=== PATIENT | male | born 1965 | race Caucasian/White ===

== ENCOUNTER 2016-04-27 14:45 | Observation (INO) | payer OTHER ==
[~2016-04-27] VITALS: Ht 193 cm; Wt 101.7 kg
[2016-04-27] MEDS ORDERED: ONDANSETRON PF 4 MG/2 ML VIAL. IV ONE (15:45)
[2016-04-27] MEDS ORDERED: IV NORMAL SALINE 500ML BAG 500 ML IV ONE (15:45)
[2016-04-27] MEDS: HYDROMORPHONE 2 MG/ML VIAL. IV PRN ×3 (16:02→22:23)
--- NOTE | 2016-04-27 16:05 | RAD ---
Lumbar spine, 3 views, 04/27/2016: History: Low back pain after lifting injury The lumbar vertebral heights are well-maintained. There is mild disc space narrowing at L1-2 and L5-S1. There are moderate scattered marginal spurs. There is a grade 1 spondylolisthesis at L5-S1. There are underlying degenerative changes involving the facet joints. No acute fracture is identified. IMPRESSION: 1. Mild to moderate multilevel degenerative change. 2. Grade 1 spondylolisthesis at L5-S1.
[2016-04-27] MEDS ORDERED: CYCLOBENZAPRINE 10 MG TABLET. PO ONE (16:15)
[2016-04-27] MEDS ORDERED: MORPHINE SULFATE 2 MG/ML DISP.SYRIN. IV PRN (18:15)
[2016-04-27] MEDS ORDERED: ONDANSETRON PF 4 MG/2 ML VIAL. IV PRN (18:15)
[2016-04-27] MEDS ORDERED: LORAZEPAM 1 MG TABLET. PO ONE (18:15)
--- NOTE | 2016-04-27 18:25 | PHYS DOC ---
Past Medical History Past Medical History: Hypertension Past Surgical History: Other Additional Past Surgical Histo: HERNIA Alcohol Use: Rarely Drug Use: None Adult General Chief Complaint Chief Complaint: BACK PAIN OR INJURY HPI HPI 50-year-old male presenting to the emergency department today with lower back pain. His been present for about 24 hours. He describes it as a sharp stabbing pain that radiates down his legs bilaterally. The pain is alleviated by rest and exacerbated by walking or standing. It is progressively become worse over the past 24 hours. He presents our emergency department today by EMS. Review of systems is negative for fecal or urinary incontinence. He denies perineal paresthesias he denies weakness numbness or tingling of his lower extremities. All other review of systems is negative unless otherwise noted in history of present illness. Review of Systems Review of Systems SEE ABOVE. Current Medications Current Medications Current Medications Medications (Trade) Dose Ordered Sig/Aidan Start Time Stop Time Status Last Admin Dose Admin Cyclobenzaprine HCl (Flexeril) 10 mg 1X ONCE 04/27/16 16:15 04/27/16 16:16 DC 04/27/16 16:04 10 MG Hydromorphone HCl (Dilaudid) 1 mg PRN Q1HR PRN 04/27/16 15:45 04/27/16 17:37 1 MG Lorazepam (Ativan) 1 mg 1X ONCE 04/27/16 18:15 04/27/16 18:16 Morphine Sulfate 2 mg PRN Q2HR PRN 04/27/16 18:15 04/28/16 18:14 Ondansetron HCl (Zofran) 4 mg PRN Q8HRS PRN 04/27/16 18:15 04/28/16 18:14 Ondansetron HCl 4 mg 4 mg 1X ONCE 04/27/16 15:45 04/27/16 15:46 DC 04/27/16 16:00 4 MG Sodium Chloride (Iv Sodium Chloride 0.9% 500ml Bag) 500 ml @ 500 mls/hr 1X ONCE 04/27/16 15:45 04/27/16 16:44 DC 04/27/16 16:01 500 MLS/HR Allergies Allergies Allergies Coded Allergies Type Severity Reaction Last Updated Verified No Known Drug Allergies 04/27/16 No Physical Exam Physical Exam Constitutional: Well developed, well nourished, no acute distress, non-toxic appearance. HENT: Normocephalic, atraumatic, bilateral external ears normal, oropharynx moist, no oral exudates, nose normal. [] Eyes: PERRLA, EOMI, conjunctiva normal, no discharge. Neck: Normal range of motion, no tenderness, supple, no stridor. [] Cardiovascular:Heart rate regular rhythm, no murmur [] Lungs & Thorax: Bilateral breath sounds clear to auscultation Abdomen: Bowel sounds normal, soft, no tenderness, no masses, no pulsatile masses. [] Skin: Warm, dry, no erythema, no rash. Back: The patient has mild tenderness along the paraspinal musculature. No midline tenderness present. No rashes erythema or fluctuance present. Extremities: No tenderness, no cyanosis, no clubbing, ROM intact, no edema. The patient has 5 out of 5 strength in his lower extremities both in his ability to dorsiflex and plantar flex. He has 2+ deep tendon reflexes in his knees bilaterally. Normal sensation of the foot. Palpable pulse in the feet bilaterally. Neurologic: Alert and oriented X 3, normal motor function, normal sensory function, no focal deficits noted. [] Psychologic: Affect normal, judgement normal, mood normal. [] Current Patient Data Vital Signs Vital Signs Date Time Temp Pulse Resp B/P Pulse Ox O2 Delivery O2 Flow Rate FiO2 04/27/16 17:00 85 18 157/88 100 Room Air 04/27/16 14:50 99.2 99.2 EKG EKG [] Radiology/Procedures Radiology/Procedures [] Course & Med Decision Making Course & Med Decision Making Pertinent Labs and Imaging studies reviewed. (See chart for details) [] 50-year-old male presenting to the emergency department today with lower back pain. Vital signs afebrile with mild tachycardia likely secondary to pain. Otherwise hypertension present. Clinical presentation not suggestive of abscess , cauda equina syndrome, or fracture. X-rays obtained which showed mild anterior listhesis of L5 on S1. His pain was told in the emergency department with multiple doses of intravenous opioid therapy. Unfortunately on reexamination his pain had not improved enough to be discharged. He was subsequently admitted to our hospital for further pain management. Consultation was placed for physiatry and spinal surgery. Dragon Disclaimer Dragon Disclaimer This electronic medical record was generated, in whole or in part, using a voice recognition dictation system. Departure Departure Impression: Primary Impression: Intractable low back pain Disposition: ADMITTED INPATIENT Admitting Physician: Yara Costello Condition: STABLE Referrals: NO PCP (PCP) PRETTY PILLAI MD Apr 27, 2016 18:25
--- NOTE | 2016-04-27 20:11 | ACF ---
Admission Forms Criteria BACK PAIN Clinical Indications for Admission to Inpatient Care (Place 'X' for any and all applicable criteria): Admission is indicated for ANY ONE of the following (1)(2)(3)(4)(5)(6): [X]I. Inpatient admission required rather than observation care (Also use Back Pain: Observation Care as appropriate) because of ANY ONE of the following [X]a) Severe pain requiring acute inpatient management [ ]b) Immediate inpatient surgery [ ]c) Other condition, treatment or monitoring requiring inpatient admission [ ]II. Spine fracture with significant damage or threat of damage to vertebral column or spinal cord [ ]III. Progressive or severe neurologic deficit [ ]IV. Suspected spinal infection (e.g., epidural abscess, vertebral osteomyelitis)(10) [ ]V. Suspected cause requires inpatient treatment (eg, aortic dissection) [ ]. Cauda equina syndrome as indicated by ANY ONE of the following (9): [ ]a) Bowel dysfunction [ ]b) Bladder dysfunction [ ]c) Saddle anesthesia [ ]d) Neurologic abnormality suggesting cauda equina impingement Extended stay beyond goal length of stay may be needed for (3)(25): [ ]a) Spinal cord compression from stenosis, disk, or tumor (8)(9) [ ]b) Traumatic or pathologic vertebral fracture (33) [ ]c) Vertebral infection(10) [ ]d) Severe pain that is difficult to control [ ]e) Older patients(65 years or older) The original [facility] content created by [employer] has been revised. The portions of the content which have been revised are identified through the use of italic text or in bold, and [facility] has neither reviewed nor approved the modified material. All other unmodified content is copyright [facility]. Please see references footnoted in the original [facility] edition 2016 Admission Criteria Met?: Yes VERO BURTON Apr 27, 2016 20:11
[2016-04-27] MEDS ORDERED: LISI1TAB7 PO (20:40)
[2016-04-27] MEDS ORDERED: CYCL10TA2 PO (20:40)
[2016-04-27] MEDS: IV NORMAL SALINE 1000ML BAG 1,000 ML IV SCH (22:23)
[2016-04-27 23:00] VITALS: BP 136/93
[2016-04-28 03:00] VITALS: BP 142/85
[2016-04-28] MEDS: HYDROMORPHONE 2 MG/ML VIAL. IV PRN (04:06)
[2016-04-28 06:36] LABS: BASO % 0 % (0-3); EOS % 0 % (0-3); HEMATOCRIT 47.3 % (39.0-53.0); HEMOGLOBIN 15.9 g/dL (13.0-17.5); LYMPH # 1.9 x10^3/uL (1.0-4.8); LYMPH % 15 % (24-48); MEAN CORPUSCULAR HEMOGLOBIN 30 pg (25-35); MEAN CORPUSCULAR HGB CONC 34 g/dL (31-37); MEAN CORPUSCULAR VOLUME 91 fL (79-100); MONO % 8 % (0-9); NEUT % 76 % (31-73); PLATELET COUNT 321 x10^3/uL (140-400); RED BLOOD COUNT 5.22 x10^6/uL (4.30-5.70); RED CELL DISTRIBUTION WIDTH 14.4 % (11.5-14.5); WHITE BLOOD COUNT 12.3 x10^3/uL (4.0-11.0)
[2016-04-28 06:49] LABS: CALCIUM 8.9 mg/dL (8.5-10.1); CREATININE 1.1 mg/dL (0.7-1.3); GFR 70.6; POTASSIUM 4.2 mmol/L (3.5-5.1)
[2016-04-28 07:00] VITALS: BP 133/88
[2016-04-28] MEDS: IV NORMAL SALINE 1000ML BAG 1,000 ML IV SCH ×2 (08:10→18:10)
[2016-04-28] MEDS ORDERED: ONDANSETRON PF 4 MG/2 ML VIAL. IV PRN ×2 (09:36→18:00)
[2016-04-28] MEDS ORDERED: OXYCODONE/APAP 10/325 TABLET. PO PRN (09:45)
[2016-04-28] MEDS ORDERED: CYCLOBENZAPRINE 10 MG TABLET. PO PRN ×2 (09:45)
[2016-04-28] MEDS ORDERED: BUPIVACAINE MPF 0.25% 10 ML VIAL. IJ ONE (10:15)
[2016-04-28] MEDS ORDERED: methylPREDNISolone ACETATE 40 MG/ML VIAL. IM ONE (10:15)
[2016-04-28] MEDS: PANTOPRAZOLE 40 MG TABLET. PO SCH (10:34)
[2016-04-28] MEDS: HYDROCHLOROTHIAZIDE 25 MG TABLET PO SCH (10:34)
[2016-04-28] MEDS: methylPREDNISolone 4 MG TABLET. PO SCH ×4 (10:34→20:02)
[2016-04-28] MEDS: LISINOPRIL 20 MG TABLET PO SCH (10:35)
[2016-04-28] MEDS: OXYCODONE/APAP 5/325 TABLET. PO PRN (10:35)
[2016-04-28 11:00] VITALS: BP 150/88
[2016-04-28] MEDS: CYCLOBENZAPRINE 10 MG TABLET. PO SCH ×2 (13:20→20:03)
--- NOTE | 2016-04-28 13:55 | RAD ---
MR LUMBAR SPINE HISTORY:NO PRIORS..PT C/O LBP WITH TINGLING AND NUMBNESS IN FEETReason: subacute lumbar sprain with lumbar radiculitis. / Spl. Instructions: / History: Technique: Sagittal T2, sagittal STIR, and sagittal T1-weighted images were obtained. Additional axial T1 and T2 weighted imaging was also performed. FINDINGS: There is grade 1 spondylolisthesis of L5 on S1 with bilateral L5 pars defects. There is no compression fracture. Overall bone marrow signal is within normal limits. The conus terminates normally at the level of T12-L1. Visualized intra-abdominal contents demonstrates no acute abnormality. At L5-S1 there is grade 1 spondylolisthesis with bilateral L5 pars defects. There is a broad-based disc protrusion that extends into the bilateral foramina resulting and moderate to severe right and moderate left foraminal stenosis. Correlate for L5 radiculopathy symptoms. At L4-L5 there is moderate disc height loss and a small disc bulge but no spinal stenosis. At L3-L4 there is no spinal stenosis. At L2-L3 there is no spinal stenosis. At L1-L2 there is no spinal stenosis. Impression: - There is grade 1 spondylolisthesis of L5-S1 with bilateral L5 pars defects. This results in moderate to severe right and moderate left foraminal stenosis. Correlate for L5 radiculopathy. Electronically signed by: Junior Wong (Apr 28, 2016 13:54:19)
--- NOTE | 2016-04-28 14:11 | PDOC1 ---
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 No urinary or fecal incontinence but pain was severe he had cold clammy hands, and tingling bilateral feet. His feet was ice cold per relay. Imaging done at ER shows some muscle spasms, maybe cord involvement? enhancement? ER needing IV dilaudid with no resolve with morphine, HE claims he does not like usually narcotics Imaging: Impression: - There is grade 1 spondylolisthesis of L5-S1 with bilateral L5 pars defects. This results in moderate to severe right and moderate left foraminal stenosis. Correlate for L5 radiculopathy. Past Medical History Cardiovascular: No pertinent hx Pulmonary: No pertinent hx GI: No pertinent hx Heme/Onc: No pertinent hx Hepatobiliary: No pertinent hx Psych: No pertinent hx Rheumatologic: No pertinent hx Infectious disease: No pertinent hx ENT: No pertinent hx Renal/: No pertinent hx Endocrine: No pertinent hx Past Surgical History Past Surgical History: No pertinent history Family History Family History: No Significant Social History Smoke: No ALCOHOL: none Drugs: None Current Problem List Problem List Problems Medical Problems: (1) Intractable low back pain Status: Acute Problems: Current Medications Current Medications Current Medications Hydromorphone HCl (Dilaudid) 1 mg PRN Q1HR PRN IV SEVERE PAIN Last administered on 04/27/16 17:37; Start 04/27/16 at 15:45; Stop 04/28/16 at 11:00 ; Status DC Ondansetron HCl 4 mg 4 mg 1X ONCE IV Last administered on 04/27/16 16:00; Start 04/27/16 at 15:45; Stop 04/27/16 at 15:46; Status DC Sodium Chloride (Iv Sodium Chloride 0.9% 500ml Bag) 500 ml @ 500 mls/hr 1X ONCE IV Last administered on 04/27/16 16:01; Start 04/27/16 at 15:45; Stop at 16:44; Status DC Cyclobenzaprine HCl (Flexeril) 10 mg 1X ONCE PO Last administered on 16:04; Start 04/27/16 at 16:15; Stop 04/27/16 at 16:16; Status DC Lorazepam (Ativan) 1 mg 1X ONCE PO ; Start 04/27/16 at 18:15; Stop 04/27/16 at 18:16; Status DC Ondansetron HCl (Zofran) 4 mg PRN Q8HRS PRN IV NAUSEA/VOMITING Last administered on 04/27/16 20:37; Start 04/27/16 at 18:15; Stop 04/28/16 at 09:38 ; Status DC Morphine Sulfate 2 mg PRN Q2HR PRN IV PAIN Last administered on 04/27/16 20:31 ; Start 04/27/16 at 18:15; Stop 04/28/16 at 18:14 Hydromorphone HCl 1 mg 1 mg PRN Q4HRS PRN IV PAIN Last administered on 04:06; Start 04/27/16 at 22:30 Sodium Chloride (Iv Sodium Chloride 0.9% 1000ml Bag) 1,000 ml @ 100 mls/hr Q10H IV Last administered on 04/28/16 08:10; Start 04/27/16 at 22:30 Ondansetron HCl (Zofran) 4 mg PRN Q6HRS PRN IV NAUSEA/VOMITING; Start 04/28/16 at 09:36 Oxycodone/ Acetaminophen (Percocet 10/325) 1 tab PRN Q4HRS PRN PO pain; Start 04/28/16 at 09:45 Oxycodone/ Acetaminophen (Percocet 5/325) 1 tab PRN Q4HRS PRN PO MILD-MOD PAIN Last administered on 04/28/16 10:35; Start 04/28/16 at 09:45 Acetaminophen (Tylenol) 500 mg PRN Q6HRS PRN PO MILD PAIN / TEMP; Start at 09:45 Cyclobenzaprine HCl (Flexeril) 10 mg PRN Q6HRS PRN PO MUSCLE SPASMS; Start at 09:45; Stop 04/28/16 at 09:45; Status DC Cyclobenzaprine HCl (Flexeril) 10 mg PRN TID PRN PO PAIN; Start 04/28/16 at 09: 45; Stop 04/28/16 at 14:00; Status DC Lisinopril (Prinivil) 20 mg DAILY PO Last administered on 04/28/16 10:35; Start 04/28/16 at 10:00 Hydrochlorothiazide (Hydrodiuril) 25 mg DAILY PO Last administered on 10:34; Start 04/28/16 at 10:00 Cyclobenzaprine HCl (Flexeril) 10 mg Q8HRS PO Last administered on 04/28/16 13 :20; Start 04/28/16 at 14:00 Methylprednisolone (Medrol) 8 mg BID PO Last administered on 04/28/16 10:34; Start 04/28/16 at 09:00; Stop 04/28/16 at 21:01 Methylprednisolone (Medrol) 4 mg BIDPCLD PO Last administered on 04/28/16 13: 19; Start 04/28/16 at 12:30; Stop 04/28/16 at 17:31 Methylprednisolone (Medrol) 4 mg TIDPC PO ; Start 04/29/16 at 08:30; Stop at 17:31 Methylprednisolone (Medrol) 8 mg QHS PO ; Start 04/29/16 at 21:00; Stop at 21:01 Methylprednisolone (Medrol) 4 mg QIDAFTMEAL PO ; Start 04/30/16 at 09:00; Stop 04/30/16 at 21:01 Methylprednisolone (Medrol) 4 mg TID PO ; Start 05/01/16 at 09:00; Stop at 21:01 Methylprednisolone (Medrol) 4 mg BID PO ; Start 05/02/16 at 09:00; Stop at 21:01 Methylprednisolone (Medrol) 4 mg DAILY PO ; Start 05/03/16 at 09:00; Stop at 09:01 Pantoprazole Sodium (Protonix) 40 mg DAILYAC PO Last administered on 04/28/16 10:34; Start 04/28/16 at 10:30 Methylprednisolone Acetate (Depo-Medrol 40mg Vial) 40 mg 1X ONCE IM ; Start at 10:15; Stop 04/28/16 at 10:21; Status DC Bupivacaine HCl (Sensorcaine-Mpf 0.25%) 10 ml 1X ONCE IJ ; Start 04/28/16 at 10 :15; Stop 04/28/16 at 10:21; Status DC Active Scripts Active Reported Cyclobenzaprine Hcl 10 Mg Tablet 1 Tab PO PRN TID PRN Lisinopril-Hctz 20-25 Mg Tab (Lisinopril/Hydrochlorothiazide) 1 Each Tablet 1 Tab PO DAILY Allergies Allergies: Coded Allergies: No Known Drug Allergies (Unverified , 04/27/16) ROS Review of System back pain, as per hPI, all else is neg Physical Exam General: Alert, Oriented X3, Cooperative, No acute distress, Other (sitting steady/remianing stillmin bed - afraid to move) HEENT: Atraumatic, PERRLA Lungs: Clear to auscultation Heart: S1S2, RRR, no thrills, no rubs Cardiovascular: S1 Breasts: Normal Abdomen: Normal bowel sounds, Soft, No tenderness, No hepatosplenomegaly, No masses Male Genitals Exam: normal genitalia, normal prostate PELVIC: Nml ext genitalia Extremities: No clubbing, No cyanosis, No edema, Normal pulses, No tenderness/ swelling Skin: No rashes, No breakdown, No significant lesion Neuro: Normal gait, Normal speech, Strength at 5/5 X4 ext, Normal tone, Sensation intact, Cranial nerves 3-12 NL, Reflexes 2+ Psych/Mental Status: Mental status NL, Mood NL Vitals Vitals Vital Signs Date Time Temp Pulse Resp B/P Pulse Ox O2 Delivery O2 Flow Rate FiO2 04/28/16 11:35 16 98 Room Air 04/28/16 11:00 98.0 82 150/88 98.0 Labs Labs Laboratory Tests Test 04/28/16 06:10 White Blood Count 12.3x10^3/uL (4.0-11.0) Red Blood Count 5.22x10^6/uL (4.30-5.70) Hemoglobin 15.9g/dL (13.0-17.5) Hematocrit 47.3% (39.0-53.0) Mean Corpuscular Volume 91fL (79-100) Mean Corpuscular Hemoglobin 30pg (25-35) Mean Corpuscular Hemoglobin Concent 34g/dL (31-37) Red Cell Distribution Width 14.4% (11.5-14.5) Platelet Count 321x10^3/uL (140-400) Neutrophils (%) (Auto) 76% (31-73) Lymphocytes (%) (Auto) 15% (24-48) Monocytes (%) (Auto) 8% (0-9) Eosinophils (%) (Auto) 0% (0-3) Basophils (%) (Auto) 0% (0-3) Neutrophils # (Auto) 9.3x10^3uL (1.8-7.7) Lymphocytes # (Auto) 1.9x10^3/uL (1.0-4.8) Monocytes # (Auto) 1.0x10^3/uL (0.0-1.1) Eosinophils # (Auto) 0.0x10^3/uL (0.0-0.7) Basophils # (Auto) 0.0x10^3/uL (0.0-0.2) Sodium Level 141mmol/L (136-145) Potassium Level 4.2mmol/L (3.5-5.1) Chloride Level 105mmol/L (98-107) Carbon Dioxide Level 26mmol/L (21-32) Anion Gap 10 (6-14) Blood Urea Nitrogen 16mg/dL (8-26) Creatinine 1.1mg/dL (0.7-1.3) Estimated GFR (Cockcroft-Gault) 70.6 Glucose Level 122mg/dL (70-99) Calcium Level 8.9mg/dL (8.5-10.1) Laboratory Tests Test 04/28/16 06:10 White Blood Count 12.3x10^3/uL (4.0-11.0) Red Blood Count 5.22x10^6/uL (4.30-5.70) Hemoglobin 15.9g/dL (13.0-17.5) Hematocrit 47.3% (39.0-53.0) Mean Corpuscular Volume 91fL (79-100) Mean Corpuscular Hemoglobin 30pg (25-35) Mean Corpuscular Hemoglobin Concent 34g/dL (31-37) Red Cell Distribution Width 14.4% (11.5-14.5) Platelet Count 321x10^3/uL (140-400) Neutrophils (%) (Auto) 76% (31-73) Lymphocytes (%) (Auto) 15% (24-48) Monocytes (%) (Auto) 8% (0-9) Eosinophils (%) (Auto) 0% (0-3) Basophils (%) (Auto) 0% (0-3) Neutrophils # (Auto) 9.3x10^3uL (1.8-7.7) Lymphocytes # (Auto) 1.9x10^3/uL (1.0-4.8) Monocytes # (Auto) 1.0x10^3/uL (0.0-1.1) Eosinophils # (Auto) 0.0x10^3/uL (0.0-0.7) Basophils # (Auto) 0.0x10^3/uL (0.0-0.2) Sodium Level 141mmol/L (136-145) Potassium Level 4.2mmol/L (3.5-5.1) Chloride Level 105mmol/L (98-107) Carbon Dioxide Level 26mmol/L (21-32) Anion Gap 10 (6-14) Blood Urea Nitrogen 16mg/dL (8-26) Creatinine 1.1mg/dL (0.7-1.3) Estimated GFR (Cockcroft-Gault) 70.6 Glucose Level 122mg/dL (70-99) Calcium Level 8.9mg/dL (8.5-10.1) VTE Prophylaxis Ordered VTE Prophylaxis Devices: Yes VTE Pharmacological Prophylaxi: Yes Assessment/Plan Assessment/Plan 1. Acute back pain on top of chronic, recent lifting heavy objects 2.grade 1 spondylolisthesis of L5-S1 with bilateral L5 pars defects. 3. moderate to severe right and moderate left foraminal stenosis.possible L5 radiculopathy. PLAn: Consult neurosx and physiatry PT./OT once cleared by the above services IV dialudid PO pain meds BOwel regimen while on narcs COnt iVF (less PO bec of pain) Dw RN and at bedside and pt CARRILLO MARX MD Apr 28, 2016 14:10
[2016-04-28] MEDS ORDERED: POLYETHYLENE GLYCOL 3350 17 GM PACKET. PO PRN (14:15)
[2016-04-28] MEDS: DOCUSATE SODIUM 100 MG CAPSULE PO SCH (14:30)
[2016-04-28 14:58] VITALS: BP 152/97
[2016-04-28 19:00] VITALS: BP 125/93
[2016-04-28 23:00] VITALS: BP 128/88
--- NOTE | 2016-04-29 01:53 | CONS ---
DATE OF CONSULTATION: 04/28/2016 ATTENDING PHYSICIAN: Dr. Costello. 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 He is moving some heavy objects in his yard. He started having the lower back pain with radiation to both lower extremities and yesterday he started having numbness and sweating in his hands. He was admitted through the Emergency Room. He was brought by emergency medical service personal. He denies any trouble with his bowel or bladder control, last time he had back pain is about 20 years ago. The patient denies any numbness or weakness in the extremities. The patient had x-rays of his lumbar spine done in the Emergency Room last evening, which revealed [id number] mitral level degenerative changes with disk space narrowing at L1-L2, L5-S1, moderate scattered marginal spurs, grade 1 spondylolisthesis of L5 on S1 with underlying degenerative changes in ____ facet joints. The patient admits pain is somewhat better with medication, mainly Dilaudid. The patient is still having some back muscle spasm with any movement. The patient has been independent with bed mobility and self-care skills prior to the present hospitalization. PHYSICAL EXAMINATION: Today revealed a middle-aged male patient is alert, oriented to time, place, person and circumstance and he is in no acute distress, still having some pain with any movement of his back. The patient had painful limited movements of his lumbar spine and straight leg raising test on the left side, causes some back pain is negative on the right side. He had 5/5 grade muscle strength in his upper and lower extremities. Deep tendon reflexes are 2+ and symmetrical and he had equal perception of touch and pinprick sensation bilaterally, localized tenderness to palpation over sacroiliac joint area. He had a crepitus on range of motion of both knee joints with mild right knee joint effusion. His skin is intact at this time. I did not see any obvious lumbar paraspinal muscles spasm at present time. He is independent with rolling from side to side. I have not tested his transfers or ambulation skills at present time. ASSESSMENT: A middle-aged male with subacute lumbar sprain with lumbar radiculitis with radiological evidence of degenerative disk disease and degenerative joint disease of lumbar vertebrae. No clinical evidence of ongoing lumbar radiculopathy to rule out any acute disk herniation. RECOMMENDATIONS: To obtain MRI scan of his lumbar vertebrae. To start him on Medrol Dosepak and to get him up with lumbar corset. Hopefully, home when medically stable in the next day or so. To consider sacroiliac joint injection, if his back pain persists. Dr. Costello, I appreciate asking me to participate in care of this interesting patient. I will be glad to follow him with you as needed for his rehabilitation. NIXON RUVALCABA MD DR: KAI/juliet JOB#: [id number] / [id number]
[2016-04-29 03:00] VITALS: BP 125/78
[2016-04-29] MEDS: IV NORMAL SALINE 1000ML BAG 1,000 ML IV SCH ×2 (04:30→13:51)
[2016-04-29] MEDS: CYCLOBENZAPRINE 10 MG TABLET. PO SCH ×3 (06:31→20:12)
[2016-04-29] MEDS: ACETAMINOPHEN 500 MG TABLET PO PRN (06:31)
[2016-04-29 07:24] VITALS: BP 116/78
[2016-04-29] MEDS: methylPREDNISolone 4 MG TABLET. PO SCH ×3 (08:30→17:30)
[2016-04-29] MEDS: LISINOPRIL 20 MG TABLET PO SCH (09:14)
[2016-04-29] MEDS: PANTOPRAZOLE 40 MG TABLET. PO SCH (09:14)
[2016-04-29] MEDS: HYDROCHLOROTHIAZIDE 25 MG TABLET PO SCH (09:14)
[2016-04-29] MEDS: DOCUSATE SODIUM 100 MG CAPSULE PO SCH (09:14)
--- NOTE | 2016-04-29 10:26 | PDOC ---
PROGRESS NOTES Subjective Subjective He continues with low back pain and no BM for 3 days.He had GI upset probably from prednisone as he did not eat much yesterday. Objective Objective Vital Signs Date Time Temp Pulse Resp B/P Pulse Ox O2 Delivery O2 Flow Rate FiO2 04/29/16 09:14 71 116/78 04/29/16 07:24 98.1 20 95 Room Air 98.1 Intake and Output 04/29/16 07:00 Intake Total 600 ml Output Total 1350 ml Balance -750 ml Intake Oral 600 ml Output Urine Total 1350 ml Physical Exam Physical Exam He is alert,and he got up with roller walker and felt dizzy while up but he did walk with roller walker for short distances.Mri scan revealed DDD and DJD with some degree of neural foraminal compromise at L5-S1 level and spondylolisthesis of L5 on S1. Assessment Assessment Problems Medical Problems: (1) Intractable low back pain Status: Acute Plan Plan of Care To get him up as tolerated.I thought of injecting his sacroiliac joints but he did not have any localized tenderness to palpation over sacroiliac joints this AM.To ask to see him for consideration of lumbar epidural steroid injection. Home when medically stable. Comment Review of Relevant I have reviewed the following items alan (where applicable) has been applied. Labs Laboratory Tests Test 04/28/16 06:10 White Blood Count 12.3x10^3/uL (4.0-11.0) Red Blood Count 5.22x10^6/uL (4.30-5.70) Hemoglobin 15.9g/dL (13.0-17.5) Hematocrit 47.3% (39.0-53.0) Mean Corpuscular Volume 91fL (79-100) Mean Corpuscular Hemoglobin 30pg (25-35) Mean Corpuscular Hemoglobin Concent 34g/dL (31-37) Red Cell Distribution Width 14.4% (11.5-14.5) Platelet Count 321x10^3/uL (140-400) Neutrophils (%) (Auto) 76% (31-73) Lymphocytes (%) (Auto) 15% (24-48) Monocytes (%) (Auto) 8% (0-9) Eosinophils (%) (Auto) 0% (0-3) Basophils (%) (Auto) 0% (0-3) Neutrophils # (Auto) 9.3x10^3uL (1.8-7.7) Lymphocytes # (Auto) 1.9x10^3/uL (1.0-4.8) Monocytes # (Auto) 1.0x10^3/uL (0.0-1.1) Eosinophils # (Auto) 0.0x10^3/uL (0.0-0.7) Basophils # (Auto) 0.0x10^3/uL (0.0-0.2) Sodium Level 141mmol/L (136-145) Potassium Level 4.2mmol/L (3.5-5.1) Chloride Level 105mmol/L (98-107) Carbon Dioxide Level 26mmol/L (21-32) Anion Gap 10 (6-14) Blood Urea Nitrogen 16mg/dL (8-26) Creatinine 1.1mg/dL (0.7-1.3) Estimated GFR (Cockcroft-Gault) 70.6 Glucose Level 122mg/dL (70-99) Calcium Level 8.9mg/dL (8.5-10.1) Medications Current Medications Hydromorphone HCl (Dilaudid) 1 mg PRN Q1HR PRN IV SEVERE PAIN Last administered on 04/27/16 17:37; Start 04/27/16 at 15:45; Stop 04/28/16 at 11:00 ; Status DC Ondansetron HCl 4 mg 4 mg 1X ONCE IV Last administered on 04/27/16 16:00; Start 04/27/16 at 15:45; Stop 04/27/16 at 15:46; Status DC Sodium Chloride (Iv Sodium Chloride 0.9% 500ml Bag) 500 ml @ 500 mls/hr 1X ONCE IV Last administered on 04/27/16 16:01; Start 04/27/16 at 15:45; Stop at 16:44; Status DC Cyclobenzaprine HCl (Flexeril) 10 mg 1X ONCE PO Last administered on 16:04; Start 04/27/16 at 16:15; Stop 04/27/16 at 16:16; Status DC Lorazepam (Ativan) 1 mg 1X ONCE PO ; Start 04/27/16 at 18:15; Stop 04/27/16 at 18:16; Status DC Ondansetron HCl (Zofran) 4 mg PRN Q8HRS PRN IV NAUSEA/VOMITING Last administered on 04/27/16 20:37; Start 04/27/16 at 18:15; Stop 04/28/16 at 09:38 ; Status DC Morphine Sulfate 2 mg PRN Q2HR PRN IV PAIN Last administered on 04/27/16 20:31 ; Start 04/27/16 at 18:15; Stop 04/28/16 at 14:04; Status DC Hydromorphone HCl 1 mg 1 mg PRN Q4HRS PRN IV PAIN Last administered on 04:06; Start 04/27/16 at 22:30 Sodium Chloride (Iv Sodium Chloride 0.9% 1000ml Bag) 1,000 ml @ 100 mls/hr Q10H IV Last administered on 04/28/16 18:10; Start 04/27/16 at 22:30 Ondansetron HCl (Zofran) 4 mg PRN Q6HRS PRN IV NAUSEA/VOMITING; Start 04/28/16 at 09:36 Oxycodone/ Acetaminophen (Percocet 10/325) 1 tab PRN Q4HRS PRN PO pain; Start 04/28/16 at 09:45 Oxycodone/ Acetaminophen (Percocet 5/325) 1 tab PRN Q4HRS PRN PO MILD-MOD PAIN Last administered on 04/28/16 10:35; Start 04/28/16 at 09:45 Acetaminophen (Tylenol) 500 mg PRN Q6HRS PRN PO MILD PAIN / TEMP Last administered on 04/29/16 06:31; Start 04/28/16 at 09:45 Cyclobenzaprine HCl (Flexeril) 10 mg PRN Q6HRS PRN PO MUSCLE SPASMS; Start at 09:45; Stop 04/28/16 at 09:45; Status DC Cyclobenzaprine HCl (Flexeril) 10 mg PRN TID PRN PO PAIN; Start 04/28/16 at 09: 45; Stop 04/28/16 at 14:00; Status DC Lisinopril (Prinivil) 20 mg DAILY PO Last administered on 04/29/16 09:14; Start 04/28/16 at 10:00 Hydrochlorothiazide (Hydrodiuril) 25 mg DAILY PO Last administered on 09:14; Start 04/28/16 at 10:00 Cyclobenzaprine HCl (Flexeril) 10 mg Q8HRS PO Last administered on 04/29/16 06 :31; Start 04/28/16 at 14:00 Methylprednisolone (Medrol) 8 mg BID PO Last administered on 04/28/16 10:34; Start 04/28/16 at 09:00; Stop 04/28/16 at 21:01; Status DC Methylprednisolone (Medrol) 4 mg BIDPCLD PO Last administered on 04/28/16 18: 03; Start 04/28/16 at 12:30; Stop 04/28/16 at 17:31; Status DC Methylprednisolone (Medrol) 4 mg TIDPC PO ; Start 04/29/16 at 08:30; Stop at 17:31 Methylprednisolone (Medrol) 8 mg QHS PO ; Start 04/29/16 at 21:00; Stop at 21:01 Methylprednisolone (Medrol) 4 mg QIDAFTMEAL PO ; Start 04/30/16 at 09:00; Stop 04/30/16 at 21:01 Methylprednisolone (Medrol) 4 mg TID PO ; Start 05/01/16 at 09:00; Stop at 21:01 Methylprednisolone (Medrol) 4 mg BID PO ; Start 05/02/16 at 09:00; Stop at 21:01 Methylprednisolone (Medrol) 4 mg DAILY PO ; Start 05/03/16 at 09:00; Stop at 09:01 Pantoprazole Sodium (Protonix) 40 mg DAILYAC PO Last administered on 04/29/16 09:14; Start 04/28/16 at 10:30 Methylprednisolone Acetate (Depo-Medrol 40mg Vial) 40 mg 1X ONCE IM ; Start at 10:15; Stop 04/28/16 at 10:21; Status DC Bupivacaine HCl (Sensorcaine-Mpf 0.25%) 10 ml 1X ONCE IJ ; Start 04/28/16 at 10 :15; Stop 04/28/16 at 10:21; Status DC Docusate Sodium (Colace) 100 mg DAILY PO Last administered on 04/29/16 09:14; Start 04/28/16 at 14:30 Polyethylene Glycol (miraLAX PACKET) 17 gm PRN DAILY PRN PO CONSTIPATION; Start 04/28/16 at 14:15 Ondansetron HCl (Zofran) 4 mg PRN Q8HRS PRN IV NAUSEA/VOMITING Last administered on 04/28/16 18:02; Start 04/28/16 at 18:00 Active Scripts Active Reported Cyclobenzaprine Hcl 10 Mg Tablet 1 Tab PO PRN TID PRN Lisinopril-Hctz 20-25 Mg Tab (Lisinopril/Hydrochlorothiazide) 1 Each Tablet 1 Tab PO DAILY Vitals/I & O Vital Sign - Last 24 Hours 04/28/16 04/28/16 04/28/16 04/28/16 10:35 10:35 11:00 11:35 Temp 98.0 98.0 Pulse 80 82 Resp 18 18 16 B/P 133/88 150/88 Pulse Ox 97 98 98 O2 Delivery Room Air Room Air 04/28/16 04/28/16 04/28/16 04/28/16 14:58 19:00 20:05 23:00 Temp 98.0 97.9 98.8 98.0 97.9 98.8 Pulse 87 80 78 Resp 18 20 B/P 152/97 125/93 128/88 Pulse Ox 97 97 94 O2 Delivery Room Air Room Air Room Air Room Air 04/29/16 04/29/16 04/29/16 03:00 07:24 09:14 Temp 98.1 98.1 98.1 98.1 Pulse 71 71 71 Resp 20 20 B/P 125/78 116/78 116/78 Pulse Ox 94 95 O2 Delivery Room Air Room Air Intake and Output 04/28/16 04/28/16 04/29/16 15:00 23:00 07:00 Intake Total 600 ml Output Total 1350 ml Balance 600 ml -1350 ml NIXON RUVALCABA MD Apr 29, 2016 10:26
[2016-04-29] MEDS ORDERED: BISACODYL 5 MG TABLET.DR. PO PRN (10:30)
[2016-04-29 11:21] VITALS: BP 125/95
[2016-04-29 11:49] LABS: BASO # 0.1 x10^3/uL (0.0-0.2); BASO % 1 % (0-3); EOS % 1 % (0-3); HEMATOCRIT 51.9 % (39.0-53.0); HEMOGLOBIN 17.7 g/dL (13.0-17.5); LYMPH # 3.4 x10^3/uL (1.0-4.8); LYMPH % 25 % (24-48); MEAN CORPUSCULAR HEMOGLOBIN 31 pg (25-35); MEAN CORPUSCULAR HGB CONC 34 g/dL (31-37); MEAN CORPUSCULAR VOLUME 90 fL (79-100); MONO % 9 % (0-9); NEUT % 64 % (31-73); PLATELET COUNT 350 x10^3/uL (140-400); RED BLOOD COUNT 5.78 x10^6/uL (4.30-5.70); RED CELL DISTRIBUTION WIDTH 14.2 % (11.5-14.5); WHITE BLOOD COUNT 13.3 x10^3/uL (4.0-11.0)
--- NOTE | 2016-04-29 12:50 | PDOC ---
PROGRESS NOTES Chief Complaint Chief Complaint Acute LBP ASSESSMENT AND PLAN: 1. Acute back pain: strain 2/2 recent lifting heavy objects. appreciate Dr Robles's help: SI joints injection considered, but pain not in joint area, rahter muscular. consider epidural block by Dr Cullen (pt declined today) 2. Chronic LBP: CT with moderate to severe right and moderate left foraminal stenosis.possible L5 radiculopathy. OT/PT, increase activity level 3. Pain control: switch to PO narcotic regimen. 4. Constipation: 2/2 narcotics. bowel regimen Vitals Vitals Vital Signs Date Time Temp Pulse Resp B/P Pulse Ox O2 Delivery O2 Flow Rate FiO2 04/29/16 11:21 99.5 94 20 125/95 95 Room Air 99.5 Physical Exam General: Alert, Oriented X3, Cooperative, No acute distress, Other (sitting steady/remianing stillmin bed - afraid to move) Heart: Regular rate Lungs: Clear Abdomen: Normal bowel sounds, Soft, No tenderness Extremities: No clubbing, No edema, Normal pulses Skin: No rashes, No breakdown, No significant lesion Labs LABS Laboratory Tests Test 04/29/16 11:10 White Blood Count 13.3x10^3/uL (4.0-11.0) Red Blood Count 5.78x10^6/uL (4.30-5.70) Hemoglobin 17.7g/dL (13.0-17.5) Hematocrit 51.9% (39.0-53.0) Mean Corpuscular Volume 90fL (79-100) Mean Corpuscular Hemoglobin 31pg (25-35) Mean Corpuscular Hemoglobin Concent 34g/dL (31-37) Red Cell Distribution Width 14.2% (11.5-14.5) Platelet Count 350x10^3/uL (140-400) Neutrophils (%) (Auto) 64% (31-73) Lymphocytes (%) (Auto) 25% (24-48) Monocytes (%) (Auto) 9% (0-9) Eosinophils (%) (Auto) 1% (0-3) Basophils (%) (Auto) 1% (0-3) Neutrophils # (Auto) 8.5x10^3uL (1.8-7.7) Lymphocytes # (Auto) 3.4x10^3/uL (1.0-4.8) Monocytes # (Auto) 1.2x10^3/uL (0.0-1.1) Eosinophils # (Auto) 0.1x10^3/uL (0.0-0.7) Basophils # (Auto) 0.1x10^3/uL (0.0-0.2) Review of Systems Review of Systems walking with great difficulties and pain in back. reports upset stomach with prednisone earlier Comment Review of Relevant I have reviewed the following items alan (where applicable) has been applied. Labs Laboratory Tests Test 04/28/16 06:10 04/29/16 11:10 White Blood Count 12.3x10^3/uL (4.0-11.0) 13.3x10^3/uL (4.0-11.0) Red Blood Count 5.22x10^6/uL (4.30-5.70) 5.78x10^6/uL (4.30-5.70) Hemoglobin 15.9g/dL (13.0-17.5) 17.7g/dL (13.0-17.5) Hematocrit 47.3% (39.0-53.0) 51.9% (39.0-53.0) Mean Corpuscular Volume 91fL (79-100) 90fL (79-100) Mean Corpuscular Hemoglobin 30pg (25-35) 31pg (25-35) Mean Corpuscular Hemoglobin Concent 34g/dL (31-37) 34g/dL (31-37) Red Cell Distribution Width 14.4% (11.5-14.5) 14.2% (11.5-14.5) Platelet Count 321x10^3/uL (140-400) 350x10^3/uL (140-400) Neutrophils (%) (Auto) 76% (31-73) 64% (31-73) Lymphocytes (%) (Auto) 15% (24-48) 25% (24-48) Monocytes (%) (Auto) 8% (0-9) 9% (0-9) Eosinophils (%) (Auto) 0% (0-3) 1% (0-3) Basophils (%) (Auto) 0% (0-3) 1% (0-3) Neutrophils # (Auto) 9.3x10^3uL (1.8-7.7) 8.5x10^3uL (1.8-7.7) Lymphocytes # (Auto) 1.9x10^3/uL (1.0-4.8) 3.4x10^3/uL (1.0-4.8) Monocytes # (Auto) 1.0x10^3/uL (0.0-1.1) 1.2x10^3/uL (0.0-1.1) Eosinophils # (Auto) 0.0x10^3/uL (0.0-0.7) 0.1x10^3/uL (0.0-0.7) Basophils # (Auto) 0.0x10^3/uL (0.0-0.2) 0.1x10^3/uL (0.0-0.2) Sodium Level 141mmol/L (136-145) Potassium Level 4.2mmol/L (3.5-5.1) Chloride Level 105mmol/L (98-107) Carbon Dioxide Level 26mmol/L (21-32) Anion Gap 10 (6-14) Blood Urea Nitrogen 16mg/dL (8-26) Creatinine 1.1mg/dL (0.7-1.3) Estimated GFR (Cockcroft-Gault) 70.6 Glucose Level 122mg/dL (70-99) Calcium Level 8.9mg/dL (8.5-10.1) Laboratory Tests Test 04/29/16 11:10 White Blood Count 13.3x10^3/uL (4.0-11.0) Red Blood Count 5.78x10^6/uL (4.30-5.70) Hemoglobin 17.7g/dL (13.0-17.5) Hematocrit 51.9% (39.0-53.0) Mean Corpuscular Volume 90fL (79-100) Mean Corpuscular Hemoglobin 31pg (25-35) Mean Corpuscular Hemoglobin Concent 34g/dL (31-37) Red Cell Distribution Width 14.2% (11.5-14.5) Platelet Count 350x10^3/uL (140-400) Neutrophils (%) (Auto) 64% (31-73) Lymphocytes (%) (Auto) 25% (24-48) Monocytes (%) (Auto) 9% (0-9) Eosinophils (%) (Auto) 1% (0-3) Basophils (%) (Auto) 1% (0-3) Neutrophils # (Auto) 8.5x10^3uL (1.8-7.7) Lymphocytes # (Auto) 3.4x10^3/uL (1.0-4.8) Monocytes # (Auto) 1.2x10^3/uL (0.0-1.1) Eosinophils # (Auto) 0.1x10^3/uL (0.0-0.7) Basophils # (Auto) 0.1x10^3/uL (0.0-0.2) Medications Current Medications Hydromorphone HCl (Dilaudid) 1 mg PRN Q1HR PRN IV SEVERE PAIN Last administered on 04/27/16 17:37; Start 04/27/16 at 15:45; Stop 04/28/16 at 11:00 ; Status DC Ondansetron HCl 4 mg 4 mg 1X ONCE IV Last administered on 04/27/16 16:00; Start 04/27/16 at 15:45; Stop 04/27/16 at 15:46; Status DC Sodium Chloride (Iv Sodium Chloride 0.9% 500ml Bag) 500 ml @ 500 mls/hr 1X ONCE IV Last administered on 04/27/16 16:01; Start 04/27/16 at 15:45; Stop at 16:44; Status DC Cyclobenzaprine HCl (Flexeril) 10 mg 1X ONCE PO Last administered on 16:04; Start 04/27/16 at 16:15; Stop 04/27/16 at 16:16; Status DC Lorazepam (Ativan) 1 mg 1X ONCE PO ; Start 04/27/16 at 18:15; Stop 04/27/16 at 18:16; Status DC Ondansetron HCl (Zofran) 4 mg PRN Q8HRS PRN IV NAUSEA/VOMITING Last administered on 04/27/16 20:37; Start 04/27/16 at 18:15; Stop 04/28/16 at 09:38 ; Status DC Morphine Sulfate 2 mg PRN Q2HR PRN IV PAIN Last administered on 04/27/16 20:31 ; Start 04/27/16 at 18:15; Stop 04/28/16 at 14:04; Status DC Hydromorphone HCl 1 mg 1 mg PRN Q4HRS PRN IV PAIN Last administered on 04:06; Start 04/27/16 at 22:30 Sodium Chloride (Iv Sodium Chloride 0.9% 1000ml Bag) 1,000 ml @ 100 mls/hr Q10H IV Last administered on 04/28/16 18:10; Start 04/27/16 at 22:30 Ondansetron HCl (Zofran) 4 mg PRN Q6HRS PRN IV NAUSEA/VOMITING; Start 04/28/16 at 09:36 Oxycodone/ Acetaminophen (Percocet 10/325) 1 tab PRN Q4HRS PRN PO pain; Start 04/28/16 at 09:45 Oxycodone/ Acetaminophen (Percocet 5/325) 1 tab PRN Q4HRS PRN PO MILD-MOD PAIN Last administered on 04/28/16 10:35; Start 04/28/16 at 09:45 Acetaminophen (Tylenol) 500 mg PRN Q6HRS PRN PO MILD PAIN / TEMP Last administered on 04/29/16 06:31; Start 04/28/16 at 09:45 Cyclobenzaprine HCl (Flexeril) 10 mg PRN Q6HRS PRN PO MUSCLE SPASMS; Start at 09:45; Stop 04/28/16 at 09:45; Status DC Cyclobenzaprine HCl (Flexeril) 10 mg PRN TID PRN PO PAIN; Start 04/28/16 at 09: 45; Stop 04/28/16 at 14:00; Status DC Lisinopril (Prinivil) 20 mg DAILY PO Last administered on 04/29/16 09:14; Start 04/28/16 at 10:00 Hydrochlorothiazide (Hydrodiuril) 25 mg DAILY PO Last administered on 09:14; Start 04/28/16 at 10:00 Cyclobenzaprine HCl (Flexeril) 10 mg Q8HRS PO Last administered on 04/29/16 06 :31; Start 04/28/16 at 14:00 Methylprednisolone (Medrol) 8 mg BID PO Last administered on 04/28/16 10:34; Start 04/28/16 at 09:00; Stop 04/28/16 at 21:01; Status DC Methylprednisolone (Medrol) 4 mg BIDPCLD PO Last administered on 04/28/16 18: 03; Start 04/28/16 at 12:30; Stop 04/28/16 at 17:31; Status DC Methylprednisolone (Medrol) 4 mg TIDPC PO ; Start 04/29/16 at 08:30; Stop at 17:31 Methylprednisolone (Medrol) 8 mg QHS PO ; Start 04/29/16 at 21:00; Stop at 21:01 Methylprednisolone (Medrol) 4 mg QIDAFTMEAL PO ; Start 04/30/16 at 09:00; Stop 04/30/16 at 21:01 Methylprednisolone (Medrol) 4 mg TID PO ; Start 05/01/16 at 09:00; Stop at 21:01 Methylprednisolone (Medrol) 4 mg BID PO ; Start 05/02/16 at 09:00; Stop at 21:01 Methylprednisolone (Medrol) 4 mg DAILY PO ; Start 05/03/16 at 09:00; Stop at 09:01 Pantoprazole Sodium (Protonix) 40 mg DAILYAC PO Last administered on 04/29/16 09:14; Start 04/28/16 at 10:30 Methylprednisolone Acetate (Depo-Medrol 40mg Vial) 40 mg 1X ONCE IM ; Start at 10:15; Stop 04/28/16 at 10:21; Status DC Bupivacaine HCl (Sensorcaine-Mpf 0.25%) 10 ml 1X ONCE IJ ; Start 04/28/16 at 10 :15; Stop 04/28/16 at 10:21; Status DC Docusate Sodium (Colace) 100 mg DAILY PO Last administered on 04/29/16 09:14; Start 04/28/16 at 14:30 Polyethylene Glycol (miraLAX PACKET) 17 gm PRN DAILY PRN PO CONSTIPATION; Start 04/28/16 at 14:15 Ondansetron HCl (Zofran) 4 mg PRN Q8HRS PRN IV NAUSEA/VOMITING Last administered on 2/23/17at 18:02; Start 04/28/16 at 18:00 Bisacodyl (Dulcolax Tab) 10 mg PRN DAILY PRN PO CONSTIPATION; Start 04/29/16 at 10:30 Active Scripts Active Reported Cyclobenzaprine Hcl 10 Mg Tablet 1 Tab PO PRN TID PRN Lisinopril-Hctz 20-25 Mg Tab (Lisinopril/Hydrochlorothiazide) 1 Each Tablet 1 Tab PO DAILY Vitals/I & O Vital Sign - Last 24 Hours 04/28/16 04/28/16 04/28/16 04/28/16 14:58 19:00 20:05 23:00 Temp 98.0 97.9 98.8 98.0 97.9 98.8 Pulse 87 80 78 Resp 18 24 20 B/P 152/97 125/93 128/88 Pulse Ox 97 97 94 O2 Delivery Room Air Room Air Room Air Room Air 04/29/16 04/29/16 04/29/16 04/29/16 03:00 07:24 09:14 11:21 Temp 98.1 98.1 99.5 98.1 98.1 99.5 Pulse 71 71 71 94 Resp 20 20 20 B/P 125/78 116/78 116/78 125/95 Pulse Ox 94 95 95 O2 Delivery Room Air Room Air Room Air Intake and Output 04/28/16 04/28/16 04/29/16 15:00 23:00 07:00 Intake Total 600 ml Output Total 1350 ml Balance 600 ml -1350 ml AZAEL MINA MD Apr 29, 2016 12:50
--- NOTE | 2016-04-29 14:23 | PDOC ---
SUBJECTIVE Subjective low back pain OBJECTIVE Objective Pt. C/O low back pain Vital Signs Vital Signs Date Time Temp Pulse Resp B/P Pulse Ox O2 Delivery O2 Flow Rate FiO2 04/29/16 11:21 99.5 94 20 125/95 95 Room Air 99.5 04/29/16 09:14 71 116/78 04/29/16 07:24 98.1 71 20 116/78 95 Room Air 98.1 04/29/16 03:00 98.1 71 20 125/78 94 Room Air 98.1 04/28/16 23:00 98.8 78 20 128/88 94 Room Air 98.8 04/28/16 20:05 Room Air 04/28/16 19:00 97.9 80 24 125/93 97 Room Air 97.9 04/28/16 14:58 98.0 87 18 152/97 97 Room Air 98.0 I & O Intake and Output 04/29/16 07:00 Intake Total 600 ml Output Total 1350 ml Balance -750 ml Intake Oral 600 ml Output Urine Total 1350 ml ASSESSMENT/PLAN Assessment/Plan MRI noted- persistent back pain. Pt. refusing LESI at this time. May f/u as OP if desired Problems: COMMENT Lab Laboratory Tests Test 04/29/16 11:10 White Blood Count 13.3x10^3/uL (4.0-11.0) Red Blood Count 5.78x10^6/uL (4.30-5.70) Hemoglobin 17.7g/dL (13.0-17.5) Hematocrit 51.9% (39.0-53.0) Mean Corpuscular Volume 90fL (79-100) Mean Corpuscular Hemoglobin 31pg (25-35) Mean Corpuscular Hemoglobin Concent 34g/dL (31-37) Red Cell Distribution Width 14.2% (11.5-14.5) Platelet Count 350x10^3/uL (140-400) Neutrophils (%) (Auto) 64% (31-73) Lymphocytes (%) (Auto) 25% (24-48) Monocytes (%) (Auto) 9% (0-9) Eosinophils (%) (Auto) 1% (0-3) Basophils (%) (Auto) 1% (0-3) Neutrophils # (Auto) 8.5x10^3uL (1.8-7.7) Lymphocytes # (Auto) 3.4x10^3/uL (1.0-4.8) Monocytes # (Auto) 1.2x10^3/uL (0.0-1.1) Eosinophils # (Auto) 0.1x10^3/uL (0.0-0.7) Basophils # (Auto) 0.1x10^3/uL (0.0-0.2) Erythrocyte Sedimentation Rate 0 (0-15) CLOVIS CEDILLO MD Apr 29, 2016 14:23
[2016-04-29 15:28] VITALS: BP 129/87
[2016-04-29 19:35] VITALS: BP 121/85
[2016-04-29] MEDS: OXYCODONE/APAP 5/325 TABLET. PO PRN (20:16)
[2016-04-29] MEDS ORDERED: methylPREDNISolone 4 MG TABLET. PO SCH (21:00)
[2016-04-30] MEDS: IV NORMAL SALINE 1000ML BAG 1,000 ML IV SCH (00:30)
[2016-04-30] MEDS ORDERED: CALCIUM CARBONATE 500 MG TAB.CHEW PO PRN (01:15)
[2016-04-30 03:08] VITALS: BP 112/87
[2016-04-30] MEDS: CYCLOBENZAPRINE 10 MG TABLET. PO SCH ×2 (06:01→14:06)
[2016-04-30 07:24] VITALS: BP 121/76
[2016-04-30] MEDS: DOCUSATE SODIUM 100 MG CAPSULE PO SCH (08:29)
[2016-04-30] MEDS: PANTOPRAZOLE 40 MG TABLET. PO SCH (08:29)
[2016-04-30] MEDS: HYDROCHLOROTHIAZIDE 25 MG TABLET PO SCH (08:30)
[2016-04-30] MEDS: methylPREDNISolone 4 MG TABLET. PO SCH ×2 (08:30→12:49)
[2016-04-30] MEDS: LISINOPRIL 20 MG TABLET PO SCH (08:30)
[2016-04-30] MEDS: ACETAMINOPHEN 500 MG TABLET PO PRN (10:04)
--- NOTE | 2016-04-30 11:11 | PDOC ---
PROGRESS NOTES Subjective Subjective No new complaints. No bowel movement yet. Objective Objective Vital Signs Date Time Temp Pulse Resp B/P Pulse Ox O2 Delivery O2 Flow Rate FiO2 04/30/16 08:30 81 121/76 04/30/16 07:24 97.9 16 93 Room Air 97.9 Intake and Output 04/30/16 07:00 Intake Total 1580 ml Output Total 1950 ml Balance -370 ml Intake Oral 1580 ml Output Urine Total 1950 ml # Voids 2 Physical Exam Physical Exam He is independent with his mobility and self care at roller walker level using lumbar corset. Assessment Assessment Problems Medical Problems: (1) Intractable low back pain Status: Acute Plan Plan of [facility] with out patient follow up and I spoke to and he can see him on out patient basis and patient is ready to go home.To provide him with roller walker. Comment Review of Relevant I have reviewed the following items alan (where applicable) has been applied. Labs Laboratory Tests Test 04/29/16 11:10 White Blood Count 13.3x10^3/uL (4.0-11.0) Red Blood Count 5.78x10^6/uL (4.30-5.70) Hemoglobin 17.7g/dL (13.0-17.5) Hematocrit 51.9% (39.0-53.0) Mean Corpuscular Volume 90fL (79-100) Mean Corpuscular Hemoglobin 31pg (25-35) Mean Corpuscular Hemoglobin Concent 34g/dL (31-37) Red Cell Distribution Width 14.2% (11.5-14.5) Platelet Count 350x10^3/uL (140-400) Neutrophils (%) (Auto) 64% (31-73) Lymphocytes (%) (Auto) 25% (24-48) Monocytes (%) (Auto) 9% (0-9) Eosinophils (%) (Auto) 1% (0-3) Basophils (%) (Auto) 1% (0-3) Neutrophils # (Auto) 8.5x10^3uL (1.8-7.7) Lymphocytes # (Auto) 3.4x10^3/uL (1.0-4.8) Monocytes # (Auto) 1.2x10^3/uL (0.0-1.1) Eosinophils # (Auto) 0.1x10^3/uL (0.0-0.7) Basophils # (Auto) 0.1x10^3/uL (0.0-0.2) Erythrocyte Sedimentation Rate 0 (0-15) Laboratory Tests Test 04/29/16 11:10 White Blood Count 13.3x10^3/uL (4.0-11.0) Red Blood Count 5.78x10^6/uL (4.30-5.70) Hemoglobin 17.7g/dL (13.0-17.5) Hematocrit 51.9% (39.0-53.0) Mean Corpuscular Volume 90fL (79-100) Mean Corpuscular Hemoglobin 31pg (25-35) Mean Corpuscular Hemoglobin Concent 34g/dL (31-37) Red Cell Distribution Width 14.2% (11.5-14.5) Platelet Count 350x10^3/uL (140-400) Neutrophils (%) (Auto) 64% (31-73) Lymphocytes (%) (Auto) 25% (24-48) Monocytes (%) (Auto) 9% (0-9) Eosinophils (%) (Auto) 1% (0-3) Basophils (%) (Auto) 1% (0-3) Neutrophils # (Auto) 8.5x10^3uL (1.8-7.7) Lymphocytes # (Auto) 3.4x10^3/uL (1.0-4.8) Monocytes # (Auto) 1.2x10^3/uL (0.0-1.1) Eosinophils # (Auto) 0.1x10^3/uL (0.0-0.7) Basophils # (Auto) 0.1x10^3/uL (0.0-0.2) Erythrocyte Sedimentation Rate 0 (0-15) Medications Current Medications Hydromorphone HCl (Dilaudid) 1 mg PRN Q1HR PRN IV SEVERE PAIN Last administered on 04/27/16 17:37; Start 04/27/16 at 15:45; Stop 04/28/16 at 11:00 ; Status DC Ondansetron HCl 4 mg 4 mg 1X ONCE IV Last administered on 04/27/16 16:00; Start 04/27/16 at 15:45; Stop 04/27/16 at 15:46; Status DC Sodium Chloride (Iv Sodium Chloride 0.9% 500ml Bag) 500 ml @ 500 mls/hr 1X ONCE IV Last administered on 04/27/16 16:01; Start 04/27/16 at 15:45; Stop at 16:44; Status DC Cyclobenzaprine HCl (Flexeril) 10 mg 1X ONCE PO Last administered on 16:04; Start 04/27/16 at 16:15; Stop 04/27/16 at 16:16; Status DC Lorazepam (Ativan) 1 mg 1X ONCE PO ; Start 04/27/16 at 18:15; Stop 04/27/16 at 18:16; Status DC Ondansetron HCl (Zofran) 4 mg PRN Q8HRS PRN IV NAUSEA/VOMITING Last administered on 04/27/16 20:37; Start 04/27/16 at 18:15; Stop 04/28/16 at 09:38 ; Status DC Morphine Sulfate 2 mg PRN Q2HR PRN IV PAIN Last administered on 04/27/16 20:31 ; Start 04/27/16 at 18:15; Stop 04/28/16 at 14:04; Status DC Hydromorphone HCl 1 mg 1 mg PRN Q4HRS PRN IV PAIN Last administered on 04:06; Start 04/27/16 at 22:30 Sodium Chloride (Iv Sodium Chloride 0.9% 1000ml Bag) 1,000 ml @ 100 mls/hr Q10H IV Last administered on 04/29/16 13:51; Start 04/27/16 at 22:30; Stop at 01:07; Status DC Ondansetron HCl (Zofran) 4 mg PRN Q6HRS PRN IV NAUSEA/VOMITING; Start 04/28/16 at 09:36 Oxycodone/ Acetaminophen (Percocet 10/325) 1 tab PRN Q4HRS PRN PO pain; Start 04/28/16 at 09:45 Oxycodone/ Acetaminophen (Percocet 5/325) 1 tab PRN Q4HRS PRN PO MILD-MOD PAIN Last administered on 04/29/16 20:16; Start 04/28/16 at 09:45 Acetaminophen (Tylenol) 500 mg PRN Q6HRS PRN PO MILD PAIN / TEMP Last administered on 04/30/16 10:04; Start 04/28/16 at 09:45 Cyclobenzaprine HCl (Flexeril) 10 mg PRN Q6HRS PRN PO MUSCLE SPASMS; Start at 09:45; Stop 04/28/16 at 09:45; Status DC Cyclobenzaprine HCl (Flexeril) 10 mg PRN TID PRN PO PAIN; Start 04/28/16 at 09: 45; Stop 04/28/16 at 14:00; Status DC Lisinopril (Prinivil) 20 mg DAILY PO Last administered on 04/30/16 08:30; Start 04/28/16 at 10:00 Hydrochlorothiazide (Hydrodiuril) 25 mg DAILY PO Last administered on 08:30; Start 04/28/16 at 10:00 Cyclobenzaprine HCl (Flexeril) 10 mg Q8HRS PO Last administered on 04/30/16 06 :01; Start 04/28/16 at 14:00 Methylprednisolone (Medrol) 8 mg BID PO Last administered on 04/28/16 10:34; Start 04/28/16 at 09:00; Stop 04/28/16 at 21:01; Status DC Methylprednisolone (Medrol) 4 mg BIDPCLD PO Last administered on 04/28/16 18: 03; Start 04/28/16 at 12:30; Stop 04/28/16 at 17:31; Status DC Methylprednisolone (Medrol) 4 mg TIDPC PO ; Start 04/29/16 at 08:30; Stop at 17:31; Status DC Methylprednisolone (Medrol) 8 mg QHS PO ; Start 04/29/16 at 21:00; Stop at 21:01; Status DC Methylprednisolone (Medrol) 4 mg QIDAFTMEAL PO ; Start 04/30/16 at 09:00; Stop 04/30/16 at 21:01 Methylprednisolone (Medrol) 4 mg TID PO ; Start 05/01/16 at 09:00; Stop at 21:01 Methylprednisolone (Medrol) 4 mg BID PO ; Start 05/02/16 at 09:00; Stop at 21:01 Methylprednisolone (Medrol) 4 mg DAILY PO ; Start 05/03/16 at 09:00; Stop at 09:01 Pantoprazole Sodium (Protonix) 40 mg DAILYAC PO Last administered on 04/30/16 08:29; Start 04/28/16 at 10:30 Methylprednisolone Acetate (Depo-Medrol 40mg Vial) 40 mg 1X ONCE IM ; Start at 10:15; Stop 04/28/16 at 10:21; Status DC Bupivacaine HCl (Sensorcaine-Mpf 0.25%) 10 ml 1X ONCE IJ ; Start 04/28/16 at 10 :15; Stop 04/28/16 at 10:21; Status DC Docusate Sodium (Colace) 100 mg DAILY PO Last administered on 04/30/16 08:29; Start 04/28/16 at 14:30 Polyethylene Glycol (miraLAX PACKET) 17 gm PRN DAILY PRN PO CONSTIPATION 1ST CHOICE; Start 04/28/16 at 14:15 Ondansetron HCl (Zofran) 4 mg PRN Q8HRS PRN IV NAUSEA/VOMITING Last administered on 04/28/16 18:02; Start 04/28/16 at 18:00; Stop 04/29/16 at 13:12 ; Status DC Bisacodyl (Dulcolax Tab) 10 mg PRN DAILY PRN PO CONSTIPATION 2ND CHOIC; Start 04/29/16 at 10:30 Calcium Carbonate/ Glycine (Tums) 500 mg PRN Q4HRS PRN PO INDIGESTION; Start at 01:15 Active Scripts Active Reported Cyclobenzaprine Hcl 10 Mg Tablet 1 Tab PO PRN TID PRN Lisinopril-Hctz 20-25 Mg Tab (Lisinopril/Hydrochlorothiazide) 1 Each Tablet 1 Tab PO DAILY Vitals/I & O Vital Sign - Last 24 Hours 04/29/16 04/29/16 04/29/16 04/29/16 11:21 15:28 19:35 20:10 Temp 99.5 98.2 98.6 99.5 98.2 98.6 Pulse 94 96 100 Resp 20 20 16 B/P 125/95 129/87 121/85 Pulse Ox 95 96 95 O2 Delivery Room Air Room Air Room Air Room Air 04/29/16 04/30/16 04/30/16 04/30/16 23:31 03:08 07:24 08:30 Temp 97.7 97.9 97.7 97.9 Pulse 67 81 81 Resp 16 16 B/P 112/87 121/76 121/76 Pulse Ox 94 93 O2 Delivery Room Air Room Air Room Air Intake and Output 04/29/16 04/29/16 04/30/16 15:00 23:00 07:00 Intake Total 500 ml 600 ml 480 ml Output Total 1200 ml 750 ml Balance 500 ml -600 ml -270 ml NIXON RUVALCABA MD Apr 30, 2016 11:11
[2016-04-30 11:55] VITALS: BP 118/86
[2016-04-30 14:47] VITALS: BP 117/86
--- NOTE | 2016-04-30 17:49 | DISCH ---
DISCHARGE INSTRUCTIONS Condition on Discharge Condition on Discharge: Stable Activity After Discharge Activity Instructions for Disc: No restrictions Diet after Discharge Diet after Discharge: Regular Contacting the DR. after DC Call your doctor for: Concerns you may have Follow-Up Follow up with: PCP AZAEL ALLEN MD Apr 30, 2016 17:48
[2016-04-30] MEDS ORDERED: NAPR220C4 PO (17:53)
[2016-04-30] MEDS ORDERED: OXYC1TAB7 PO (17:53)
[2016-04-30] MEDS ORDERED: CYCL10TA2 PO (17:53)
[2016-05-01] MEDS ORDERED: methylPREDNISolone 4 MG TABLET. PO SCH (09:00)
[2016-05-02] MEDS ORDERED: methylPREDNISolone 4 MG TABLET. PO SCH (09:00)
--- NOTE | 2016-05-02 23:11 | DS ---
DATE OF DISCHARGE: 04/30/2016 CHIEF COMPLAINT: Acute lower back pain. HOSPITAL COURSE: The patient is a 50-year-old gentleman who presented to the Emergency Room with sudden onset acute back pain after lifting heavy objects. He was admitted for intractable pain. He was seen by Dr. Robles and a SI joint injection was considered, but not followed through as the area of pain was thought more lumbar. The patient was offered an epidural block by Dr. Cullen, but declined. He actually improved with conservative treatment including ice and steroids, and narcotics and felt ready for discharge on the 04/30/2016. DISCHARGE PHYSICAL EXAMINATION: VITAL SIGNS: Blood pressure of 125/75, heart rate of 94, respiratory rate at 18. He is afebrile. GENERAL: This is a well-nourished, well-developed 50-year-old gentleman, alert and oriented, no acute distress. LUNGS: Clear to auscultation bilaterally. HEART: Regular rate and rhythm. ABDOMEN: Has positive bowel sounds, soft, nontender. BACK: With tenderness to palpation in both paraspinal muscle groups. EXTREMITIES: Show no edema. Sensation intact. DISCHARGE DISPOSITION: To home. DISCHARGE CONDITION: Improved. DISCHARGE DIAGNOSES: Radiculopathy, acute lower back pain. DISCHARGE MEDICATIONS: Please refer to MAR. DISCHARGE INSTRUCTIONS: The patient will follow up with PCP in 1-2 weeks. AZAEL MINA MD DR: HUGO/nts JOB#: [id number] / [id number]
[2016-05-03] MEDS ORDERED: methylPREDNISolone 4 MG TABLET. PO SCH (09:00)
== END 2016-04-30 18:38 | disposition home or self-care (01) ==
LOC: ER 14:45 → 6 SOUTH 18:01
PROVIDERS: ADMIT Internal Medicine; ATTEND Internal Medicine
DX: M43.16 Spondylolisthesis, lumbar region (principal); S33.5XXA Sprain of ligaments of lumbar spine, initial encounter; M48.00 Spinal stenosis, site unspecified; I10 Essential (primary) hypertension; G89.29 Other chronic pain; X50.0XXA Overexertion from strenuous movement or load, initial encounter; Y92.89 Other specified places as the place of occurrence of the external cause; Y93.89 Activity, other specified; Y99.8 Other external cause status
CPT/HCPCS: 36415; 72100; 72148; 80048; 85027; 85651; 96361; 96374; 96375; 96376; 97116; 97162; 97166; 97530; 99285; G0378; G0379; J1170; J2270; J2405; J7030; J7040; J7509